=== PATIENT | female | born 1985 | race African-American/Black ===

== ENCOUNTER 2018-05-07 08:24 | Emergency (ER) | payer OTHER ==
[2018-05-07 08:38] VITALS: BP 140/82; TEMP 98.6; O2SAT 100
--- NOTE | 2018-05-07 09:23 | ED.PDOC ---
History of Present Illness - General Chief Complaint: Chemical Exposure/Inhalation Stated Complaint: Chemical reaction to fingers Time Seen by Provider: 05/07/18 08:25 Source: patient Exam Limitations: no limitations - History of Present Illness Initial Comments: the patient is a 32-year-old female presenting to the emergency room after sustaining a mild chemical burn to the tips of several of her fingers of both hands after a concentrated hydrogen peroxide cartridge that is used for cleaning surgical equipment malfunctioned. Mild to moderate burning of the skin. This appears to be first-degree chemical burn only. No exposure to other areas of the body or the eyes. The patient's [facility] No evidence of any blistering. I do not believe that there is any areas of second-degree burn. I do not expect any scarring. No loss of sensation. Timing/Duration: momentarily Severity: moderate Improving Factors: nothing Worsening Factors: nothing Associated Symptoms: denies symptoms Allergies/Adverse Reactions: Allergies NO KNOWN ALLERGY Allergy (Verified 05/07/18 08:37) Home Medications: Ambulatory Orders NK [NK] 05/07/18 Review of Systems - Review of Systems Constitutional: States: no symptoms reported EENTM: States: no symptoms reported Respiratory: States: no symptoms reported Cardiology: States: no symptoms reported Gastrointestinal/Abdominal: States: no symptoms reported Genitourinary: States: no symptoms reported Musculoskeletal: States: no symptoms reported Skin: States: see HPI Neurological: States: no symptoms reported All other Systems: No Change from Baseline Past Medical History (General) - Patient Medical History Hx Stroke: No Hx Congestive Heart Failure: No Hx Diabetes: No Hx MRSA: No - Vaccination History Hx Influenza Vaccination: Yes - 04/2018 Hx Pneumococcal Vaccination: No - Social History Hx Tobacco Use: No - Female History Patient is a Female of Child Bearing Age (10 -59 yrs old): Yes Patient : No Family Medical History - Family History Mother Living Status: Still Living Hx Family Hypertension: Yes Hx Family Diabetes: Yes Physical Exam - Physical Exam General Appearance: Alert, Comfortable, No apparent distress Eye Exam: bilateral normal Ears, Nose, Throat: hearing grossly normal Neck: full range of motion Respiratory: no respiratory distress, no accessory muscle use Cardiovascular/Chest: no edema Rectal Exam: deferred Extremity: normal range of motion, normal capillary refill Neurologic: performance improvement analyst II-XII nml as tested, alert, normal mood/affect, oriented x 3 Skin Exam: normal color - with the exception of the white areas that were exposed to a concentrated hydrogen peroxide Comments: Vital Signs - 24 hr 05/07/18 08:28 Temperature 98.6 F Pulse Rate [ 72 Left Radial] Respiratory 18 Rate Blood Pressure 140/82 [Right Arm] O2 Sat by Pulse 100 Oximetry Progress - Progress Progress: 05/07/18 09:23 the patient is a 32-year-old female presented to the emergency room after a first-degree chemical burn to the tips of several fingers of both hands due to exposure to concentrated hydrogen peroxide. The areas were irrigated for 30 minutes as per recommendations of poison control. I do not see any definite areas of any second-degree marrero. I therefore do not suspect any scarring will occur. The areas will likely be sore for several days. She can use a hydrating lotion such as Cetaphil or Vaseline intensive care to prevent drying which can prevent cracking and further discomfort. I do not recommend Silvadene for these. I see no indication for any prophylactic antibiotic. Oral anti-inflammatories such as Motrin or Aleve may prove beneficial. ER warnings were given for any significant worsening. Departure - Departure Clinical Impression: Chemical burn Disposition: Discharge to Home or Self Care Condition: Fair Departure Forms: ED Discharge - Pt. Copy, Patient Portal Self Enrollment Instructions: Chemical Exposure to the Skin (DC) Diet: regular diet Activity: increase activity as tolerated Home Medications: Ambulatory Orders NK [NK] 05/07/18 Additional Instructions: the patient is a 32-year-old female presented to the emergency room after a first-degree chemical burn to the tips of several fingers of both hands due to exposure to concentrated hydrogen peroxide. The areas were irrigated for 30 minutes as per recommendations of poison control. I do not see any definite areas of any second-degree marrero. I therefore do not suspect any scarring will occur. The areas will likely be sore for several days. She can use a hydrating lotion such as Cetaphil or Vaseline intensive care to prevent drying which can prevent cracking and further discomfort. I do not recommend Silvadene for these. I see no indication for any prophylactic antibiotic. Oral anti-inflammatories such as Motrin or Aleve may prove beneficial. ER warnings were given for any significant worsening.
== END 2018-05-07 10:40 | disposition home or self-care (01) ==
LOC: ER 08:24
DX: T23.5 Corrosion of first degree of wrist and hand (principal); T23.531A Corrosion of first degree of multiple right fingers (nail), not including thumb, initial encounter; T65.891A Toxic effect of other specified substances, accidental (unintentional), initial encounter; Y99.0 Civilian activity done for income or pay; Y92.69 Other specified industrial and construction area as the place of occurrence of the external cause

== ENCOUNTER → 2018-06-27 | Outpatient (CLI) | payer OTHER | LOC: LAB.O 12:58 | PROVIDERS: ATTEND Nurse Practitioner Family | DX: R68.89 Other general symptoms and signs (principal) ==